=== PATIENT | female | born 1990 | race African-American/Black ===

== ENCOUNTER 2016-07-16 06:09 | Day surgery (SDC) | payer OTHER ==
[~2016-07-16 06:09] MED LIST: IBUP-1027 PO; PREN1TAB58 PO
[2016-07-16 06:45] LABS: NEG OBC UR NEG; POS OBC UR POS
[2016-07-16] MEDS ORDERED: MORPHINE SULFATE 2 MG/ML DISP.SYRIN. IV PRN (07:00)
[2016-07-16] MEDS ORDERED: ONDANSETRON PF 4 MG/2 ML VIAL. IV PRN (07:00)
[2016-07-16] MEDS ORDERED: BUPIVAC MPF-EPI 0.5%-1:200000 30 ML VIAL. ONE (07:00)
[2016-07-16] MEDS ORDERED: PROCHLORPERAZINE 10 MG/2 ML VIAL. IV PRN (07:00)
[2016-07-16] MEDS ORDERED: HYDROMORPHONE 2 MG/ML VIAL. IV PRN (07:00)
[2016-07-16] MEDS ORDERED: FENTANYL PF 100 MCG/2 ML VIAL. IV PRN (07:00)
[2016-07-16] MEDS ORDERED: IV RINGERS,LACTATED 1000ML 1,000 ML IV SCH (07:00)
[2016-07-16] MEDS ORDERED: LIDOCAINE 1% 1 ML SYRINGE. ID PRN (07:00)
[2016-07-16] MEDS ORDERED: SUCCINYLCHOLINE 200 MG/10 ML VIAL. ONE (07:16)
[2016-07-16] MEDS ORDERED: PROPOFOL 20 ML IV ONE (07:16)
[2016-07-16] MEDS ORDERED: ONDANSETRON PF 4 MG/2 ML VIAL. ONE (07:16)
[2016-07-16] MEDS ORDERED: DEXAMETHASONE SOD PHOS 20 MG/5 ML VIAL. ONE (07:16)
[2016-07-16] MEDS ORDERED: LIDOCAINE 2% 100 MG/5 ML DISP.SYRIN. ONE (07:16)
[2016-07-16] MEDS ORDERED: FENTANYL PF 100 MCG/2 ML VIAL. ONE (07:16)
[2016-07-16] MEDS ORDERED: MIDAZOLAM HCL 2 MG/2 ML VIAL. ONE (07:33)
[2016-07-16] MEDS ORDERED: GLYCOPYRROLATE 1 MG/5 ML VIAL. ONE (07:33)
[2016-07-16] MEDS ORDERED: KETOROLAC 60 MG/2 ML SYRINGE FOR OR. ONE (08:04)
[2016-07-16] MEDS ORDERED: ESMOLOL 100 MG/10 ML VIAL. IV ONE (08:04)
--- NOTE | 2016-07-16 08:37 | PDOC ---
BRIEF OPERATIVE NOTE Date: Jul 16, 2016 Pre-Op Diagnosis multiparous desires permanent sterilization Post-Op Diagnosis same Procedure Performed Lap BTL with filshie clips Surgeon Jose Sports Photographer None Anesthesia Type: General Blood Loss 10cc Specimens Obtained none Complications none ALIA TRIVEDI MD Jul 16, 2016 08:37
[2016-07-16] MEDS: FENTANYL PF 100 MCG/2 ML VIAL. IV PRN ×3 (08:53→09:10)
[2016-07-16 10:41] VITALS: BP 163/93
--- NOTE | 2016-08-04 18:44 | OP ---
DATE OF SURGERY: 07/16/2016 PREOPERATIVE DIAGNOSIS: Multiparous, desires permanent sterilization. POSTOPERATIVE DIAGNOSES: Multiparous, desires permanent sterilization. PROCEDURE: Laparoscopic bilateral tubal ligation with Filshie clips. SURGEON: Alia Garcia M.D. RAG GRADER: None. ANESTHESIA: General. ESTIMATED BLOOD LOSS: 10 mL. FLUIDS: Crystalloid. SPECIMENS: None. COMPLICATIONS: None. CONDITION: Stable. DESCRIPTION OF PROCEDURE: Risks, benefits, indications, and alternatives were discussed in detail with the patient. The patient was brought to the OR theater, placed in the dorsolithotomy position in [facility]. Under adequate general anesthesia, the patient was prepped and draped in usual sterile manner. A sponge stick was placed in the vaginal vault. Attention was then turned to the anterior abdominal wall. A small transverse infraumbilical incision was made. Through this incision, a 5-mm disposable trocar was placed via the Visiport without any complications. Pneumoperitoneum was created. A video laparoscope was placed. No abnormal findings were seen. Attention was then turned to the suprapubic area. A transverse incision was made to receive 8 mm disposable trocar. Before this was done, it was infiltrated with 0.5% Marcaine with epinephrine. An 8-mm disposable trocar was placed under direct visualization without any complications. The patient was placed in Trendelenburg. First, the right tube was identified, followed to its fimbriated end, approximately 1 cm to 2 cm from the cornu. A Filshie clip was placed with good application appreciated. Same procedure was carried out on the opposite side, and the procedure was terminated. All laparoscopic instrumentations were removed. Pneumoperitoneum was allowed to dissipate. Trocar sleeves were removed. Sponge stick was removed. The incision was once again infiltrated with 0.5% Marcaine with epinephrine for additional pain control. The incisions were reapproximated with 4-0 Monocryl in subcuticular fashion. Sponge, needle, and instrument counts were correct x 2 per nursing staff. ALIA GARCIA MD DR: JUAN ALBERTO/jaquelin JOB#: [id number] / [id number]
== END 2016-07-16 11:19 | disposition home or self-care (01) ==
LOC: SURG 06:09
PROVIDERS: ATTEND Specialist
DX: Z30.2 Encounter for sterilization (principal); E66.01 Morbid (severe) obesity due to excess calories; Z68.42 Body mass index [BMI] 45.0-49.9, adult
CPT/HCPCS: 58671; 81025; A4264; C1769; J0330; J1100; J1885; J2250; J2405; J2704; J3010; J3490; J7120